=== PATIENT | female | born 1965 | race Caucasian/White ===

== ENCOUNTER 2017-01-26 16:09 | Emergency (ER) | payer OTHER ==
[~2017-01-26] VITALS: Ht 171.4 cm; Wt 59.1 kg
[2017-01-26 16:35] VITALS: BP 103/61; PULSE 79; RESP 16; O2SAT 100
[2017-01-26 17:42] LABS: BASOPHILS % (AUTO) 0.5 % (0-3); EOSINOPHILS % (AUTO) 2.2 % (0-5); MONOCYTES % (AUTO) 8.2 % (4-12); Mean Corpuscular Hemoglobin 31.6 pg (27.0-35.0); Mean Corpuscular Volume 94.2 fL (81-100); NEUTROPHILS % (AUTO) 59.7 % (40-74); Platelet Count 255 bil/L (150-400)
[2017-01-26 17:51] LABS: Magnesium 1.9 mg/dL (1.6-2.6)
--- NOTE | 2017-01-26 18:13 | ED.REPORT ---
HPI-Abd Pain F 40 and Over Date of Service Jan 26, 2017 ED Provider: Christopher Jurado MD The pt is a 51 y/o female w/ a hx of asthma, lupus, seizures, and a complete hysterectomy presenting to the ED complaining of flank pain onset last week. The pain is worse on the L, has been getting progressively worse, w/ pain severe enough to cause her to vomit, and increases when she is walking or driving. She is also experiencing chills, nausea and a possible fever which she says may just be due to the weather. The pt has had 2 kidney infections years ago w/ similar symptoms. She also reports being 1 year free of GI cancer. Nursing Notes Stated Complaint: BACK PAIN,POSSIBEL KIDNEY INFECTION Chief Complaint: Female Abdominal Pain Nursing Notes Reviewed: Yes (Flagr not reconciled) Allergies: Uncoded Allergies: NARCOTICS (Allergy, Mild, 01/26/17) Scheduled Amoxicillin/Clav K 875-125 mg (Augmentin 875-125 mg) 1 Each Tablet 1 TABLET PO BID Scheduled PRN Hydrocodone-Acetaminophen 5-325 mg (Hydrocodone-Acetaminophen 5-325 mg) 1 Each Tablet 1 TABLET PO TID PRN PRN For Pain Ondansetron ODT (Ondansetron ODT) 8 Mg Tab.rapdis 8 MG PO Q4H PRN PRN For Nausea General Time Seen by MD: 18:08 Chief Complaint Other (bilat flank pain ) Hx Obtained From: Patient Arrived By: Walk-in Sudden in Onset?: Yes Onset Occurred: 1 week ago Symptom Duration: Since onset Progression since Onset: Gradually worsening Recent Healthcare: No recent doctor visit, No recent hospitalization Similar Sx Previous: Yes Past Medical History Past Medical History 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 Physical Exam Vital Signs Vital Signs (First) Date Time Temp Pulse Resp B/P Pulse Ox O2 Delivery O2 Flow Rate FiO2 01/26/17 16:35 37.0 79 16 103/61 100 Room Air Initial VS: Reviewed, Vital signs normal Head / Eyes: Atraumatic, Normocephalic, PERRL ENT: Mucous membranes moist, Conjunctiva normal, No scleral icterus Neck: Supple, Non-tender, Full range of motion Extremities: Vascular intact, Neuro intact, No swelling, No tenderness Skin: Warm, Dry, No cyanosis Neurologic: Alert, Oriented, Nonfocal Psychiatric: Mood/affect normal, Behavior normal, Normal thought content General/Constitutional: Awake, Alert Fatigued Respiratory / Chest: Atraumatic, Breath sounds NL, Breath sounds = bilat Cardiovascular: Heart rate NL, Regular rhythm, Heart sounds NL Abdomen: Atraumatic, Soft, Non-tender Back: Full range of motion Flank / Spine / Paraspinal: Positive: Flank tender L Interpretation & Diagnostics Lab Results Interpretation Result Diagram: 01/26/17 1738 01/26/17 1738 Test 01/26/17 17:38 01/26/17 20:02 White Blood Count 6.0th/mm3 (3.8-10.1) Red Blood Count 4.31mil/mm3 (3.90-5.20) Hemoglobin 13.6g/dL (12.0-15.6) Hematocrit 40.6% (35.0-46.0) Mean Corpuscular Volume 94.2fL (81-100) Mean Corpuscular Hemoglobin 31.6pg (27.0-35.0) Mean Corpuscular Hemoglobin Concent 33.5% (32.0-37.0) Red Cell Distribution Width 13.6% (12.3-15.4) Platelet Count 255bil/L (150-400) Neutrophils (%) (Auto) 59.7% (40-74) Lymphocytes (%) (Auto) 29.2% (14-46) Monocytes (%) (Auto) 8.2% (4-12) Eosinophils (%) (Auto) 2.2% (0-5) Basophils (%) (Auto) 0.5% (0-3) Sodium Level 140mEq/L (134-144) Potassium Level 4.1mEq/L (3.5-5.2) Chloride Level 102mEq/L (97-108) Carbon Dioxide Level 21mmol/L (18-29) Blood Urea Nitrogen 22mg/dL (6-24) Creatinine 0.68mg/dL (0.57-1.00) Estimat Glomerular Filtration Rate 131mL/min (>59) Glucose Level 147mg/dL (60-99) Calcium Level 8.8mg/dL (8.5-10.1) Magnesium Level 1.9mg/dL (1.6-2.6) Total Bilirubin 0.2mg/dL (0.0-1.2) Aspartate Amino Transf (AST/SGOT) 26U/L (0-50) Alanine Aminotransferase (ALT/SGPT) 26U/L (0-32) Alkaline Phosphatase 108U/L (25-150) Total Protein 6.4g/dL (6.4-8.4) Albumin 4.0g/dL (3.4-5.0) Lipase 34U/L (13-60) Urine Color Yellow (YELLOW) Urine Appearance Clear (CLEAR,HAZY) Urine pH 5.5 (5.0-8.0) Urine Specific Ross 1.025 (1.003-1.035) Urine Protein Negativemg/dL (NEG,TRACE) Urine Glucose (UA) Negativemg/dL (NEGATIVE) Urine Ketones Negativemg/dL (NEGATIVE) Urine Occult Blood Negative (NEGATIVE) Urine Nitrite Negative (NEGATIVE) Urine Bilirubin Negative (NEGATIVE) Urine Urobilinogen Normalmg/dL (NORMAL) Urine Leukocyte Esterase Negative (NEGATIVE) Urine RBC 0-2/hpf (0-2) Urine WBC 0-5/hpf (0-5) Urine Epithelial Cells Occasional/hpf (NONE-MOD) Urine Crystals None seen (NONE SEEN) Urine Bacteria None/hpf (NONE-FEW) Urine Hyaline Casts None/lpf (NONE) Urine Granular Casts None seen (NONE SEEN) Urine Waxy Casts None seen (NONE SEEN) Urine Red Blood Cell Casts None seen (NONE SEEN) Urine White Blood Cell Casts None seen (NONE SEEN) Urine Mucus None seen (None Seen) Urine Trichomonas None seen (NONE SEEN) Urine Yeast None (NONE SEEN) Urinalysis Comment None Urine Culture Reflexed Not indicated Lab Results Interpretation: CBC normal CMP normal UA negative Re-Eval/Medical Decision Med Decision/Clinical Course This is a 51-year-old female presents complaining that she may have a kidney infection. She reports dysuria worsening over the past week, now has flank pain and nausea. She reports is similar to previous kidney infections he said the past. She has no anterior abdominal pain. She has no other complaints. She is afebrile, clinically nontoxic, the soft nontender abdomen-which she does have mild left-sided CVA tenderness. She does appear fatigued. Acutely toxic or severely ill. Labs are drawn and were normal. Urinalysis sternotomy normal. However symptoms are really suspicious. I think it is reasonable to go ahead and treat , the understanding the patient is not turning around responding and by therapy that she should return to the ED and CT imaging should be considered. Entirely comfortable with this. She received a loading dose of ceftriaxone initially. She is being discharged on a course of Augmentin, I have got a written for a few hydrocodone she reports she can take with Benadryl-but she is not sure she will fill the prescription. I have also given her ondansetron. Yaa return precautions reviewed. Patient's discharged in improved condition Source of Hx: Old records Differential Diagnosis: Positive: Pyelonephritis, Negative: Abdominal aortic aneurysm, Appendicitis, Bladder outlet obstruct, C. diff colitis, Cervicitis, Cholangitis, Cholecystitis, Ectopic preg ruptured, Ectopic , Esophageal rupture, Gun shot wound abdomen, Pancreatitis, Pelvic inflam disease, Peptic ulcer disease, Stab wound abdomen, Trauma, abdominal, Unstable angina, Volvulus Counseled Regarding: Diagnosis, Lab results, Need for follow-up, When/why to return to ED Discharge & Departure Primary Impression: Flank pain Additional Impression: Dysuria Disposition: Home Discharge Condition All VS Reviewed: Yes Condition: Stable Referrals: [facility] Scribe Attestation Portions of this note were transcribed by José Mcdaniels. I, Dr. Jurado personally performed the history, physical exam and medical decision-making; I reviewed and confirmed the accuracy of the information in the transcribed note. copies to: [facility] Christopher Jurado MD Jan 26, 2017 18:13 José Mcdaniels Jan 26, 2017 19:07
[2017-01-26] MEDS ORDERED: Ondansetron 2 mg/mL 2 mL Inj IVPUSH ONE (18:35)
[2017-01-26] MEDS ORDERED: 0.9% Sodium Chloride 1,000 ML IV ONE (18:40)
[2017-01-26] MEDS ORDERED: HYDROcodone-APAP 5-325 mg Tablet PO ONE (18:40)
[2017-01-26] MEDS ORDERED: cefTRIAXone Inj 2,000 MG in Dextrose 5% Minibag Plus 50 ML IV ONE (18:40)
[2017-01-26 20:19] LABS: APPEARANCE,URINE CLEAR (CLEAR,HAZY); COLOR,URINE YELLOW (YELLOW); OCCULT BLOOD,URINE NEGATIVE (NEGATIVE); PH,URINE 5.5 (5.0-8.0); UROBILINOGEN,URINE NORMAL (NORMAL)
[2017-01-26] MEDS ORDERED: HYDR-4003 PO (20:33)
[2017-01-26] MEDS ORDERED: ONDA8TAB10 PO (20:33)
[2017-01-26] MEDS ORDERED: AMOX-366 PO (20:33)
[2017-01-26 21:12] VITALS: BP 110/56; PULSE 72; RESP 20; O2SAT 99
== END 2017-01-26 21:12 | disposition home or self-care (01) ==
LOC: SED 16:15
DX: R10.9 Unspecified abdominal pain (principal); R30.0 Dysuria; J45.909 Unspecified asthma, uncomplicated; Z88.0 Allergy status to penicillin
CPT/HCPCS: 36415; 80053; 81000; 83690; 83735; 85025; 93005; 96365; 96375; 99285; J0696; J1200; J2405; J7030